=== PATIENT | female | born 1955 | race Caucasian/White ===

== ENCOUNTER → 2022-12-31 | Outpatient (CLI) | payer MEDICARE, OTHER ==
--- NOTE | 2022-12-31 13:45 | Diagnostic Imaging Report ---
PROCEDURE: US Renal Bilateral. TECHNIQUE: Multiple real-time grayscale images were obtained over the kidneys in various projections bilaterally. INDICATION: Bladder cancer COMPARISON: None FINDINGS: Right kidney: Length (cm): 10.8 Hydronephrosis: None Cortex: Normal thickness and echogenicity Other: There are echogenic foci in the right kidney which could represent stones. Largest is measured at 5 mm. Left kidney: Length (cm): 10.2 Hydronephrosis: None Cortex: Normal thickness and echogenicity Other: There is an ill-defined isoechoic mass at the left mid kidney which is measured at 2.7 cm in size. This could be a dromedary hump. Bladder: Prevoid volume (mL): 185 Ureteral jets: Bilateral ureteral jets are seen Other: No filling defects or mass seen. IMPRESSION: 1. Questionable isoechoic mass in the left mid kidney, may represent an anatomic variant or possibly neoplasm. Consider CT with renal mass contrast protocol to further evaluate. 2. Echogenic foci in the right kidney, may represent stones. There is no hydronephrosis. 3. Normal-appearing bladder. Dictated by: Dictated on workstation # [id number]
== END ==
LOC: RAD 09:30
PROVIDERS: ATTEND Urology
DX: C67.0 Malignant neoplasm of trigone of bladder (principal); N30.21 Other chronic cystitis with hematuria
CPT/HCPCS: 76770